=== PATIENT | male | born 1970 | race Asian ===

== ENCOUNTER 2017-11-04 07:45 | Emergency (ER) | payer OTHER ==
[~2017-11-04] VITALS: Ht 180.3 cm; Wt 110.0 kg
[~2017-11-04 07:45] MED LIST: MULTTAB50; VIT250TA PO; [UNRECOGNIZED DRUG - CODE] PO
[2017-11-04 07:47] VITALS: BP 181/108; PULSE 79; RESP 16; TEMP 98.4; O2SAT 98
[2017-11-04] MEDS ORDERED: POTA10CA PO (08:48)
[2017-11-04] MEDS ORDERED: AMLO5TAB2 PO (08:48)
[2017-11-04 08:50] VITALS: BP 132/87; PULSE 83; RESP 18; O2SAT 96
[2017-11-04] MEDS ORDERED: [UNRECOGNIZED DRUG - CODE] PO (08:51)
[2017-11-04] MEDS ORDERED: CYCL10TA PO (09:36)
[2017-11-04] MEDS ORDERED: MOBI15TA PO (09:36)
[2017-11-04] MEDS ORDERED: PRED20 PO (09:38)
--- NOTE | 2017-11-04 09:38 | PD ---
HPI Chief Complaint: Back/ Neck Pain or Injury Time Seen by Provider: 09:11 Travel History International Travel<30 days: No Contact w/Intl Traveler<30days: No Traveled to known affect area: No History of Present Illness HPI Is a 47-year-old male presents emergency department with a few days history of low back pain. 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 He has been taking some Tylenol at home with no significant relief. Denies any saddle anesthesia difficulty urinating numbness and tingling in his legs or weakness in his legs. States the pain is mild to moderate, worse when he is lying flat, context and associated signs and symptoms as above PFSH Past Medical History Hypertension: Yes Sleep Apnea: Yes Influenza Vaccination: Yes Past Surgical History Cholecystectomy: Yes Social History Alcohol Use: Yes (SOCIAL) Tobacco Use: No Substance Use: No Allergies-Medications (Allergen,Severity, Reaction): Coded Allergies: minocycline (Verified Allergy, Intermediate, 11/04/17) INCREASED HR Reported Meds & Prescriptions Reported Meds & Active Scripts Active Prednisone 20 Mg Tab 60 Mg PO DAILY 5 Days Flexeril (Cyclobenzaprine HCl) 10 Mg Tab 10 Mg PO TID Mobic (Meloxicam) 15 Mg Tab 15 Mg PO DAILY 7 Days Reported Epivir HBV (Lamivudine (HBV)) 100 Mg Tab 100 Mg PO DAILY Potassium Chloride ER (Potassium Chloride) 10 Meq Cap 10 Meq PO DAILY Amlodipine (Amlodipine Besylate) 5 Mg Tab 5 Mg PO DAILY Review of Systems Except as stated in HPI: all other systems reviewed are Neg Physical Exam Narrative GENERAL: Well-developed, well-nourished, no obvious distress SKIN: Focused skin assessment warm/dry. HEAD: Atraumatic. Normocephalic. EYES: Pupils equal and round. No scleral icterus. No injection or drainage. ENT: No nasal bleeding or discharge. Mucous membranes pink and moist. NECK: Trachea midline. No JVD. CARDIOVASCULAR: Regular rate and rhythm. No murmur appreciated. RESPIRATORY: No accessory muscle use. Clear to auscultation. Breath sounds equal bilaterally. GASTROINTESTINAL: Abdomen soft, non-tender, nondistended. Hepatic and splenic margins not palpable. MUSCULOSKELETAL: No obvious deformities. No clubbing. No cyanosis. No edema. There is no midline CT or L-spine tenderness, 5 out of 5 strength in all 4 extremities, pulse motor and sensory intact distally in all 4 extremities NEUROLOGICAL: Awake and alert. No obvious cranial nerve deficits. Motor grossly within normal limits. Normal speech. PSYCHIATRIC: Appropriate mood and affect; insight and judgment normal. Data Data Last Documented VS Vital Signs Date Time Temp Pulse Resp B/P (MAP) Pulse Ox O2 Delivery O2 Flow Rate FiO2 11/04/17 10:08 11/04/17 08:50 83 18 96 Room Air 11/04/17 07:47 98.4 Orders Orders Meloxicam (Mobic) (11/04/17 09:45) Ed Discharge Order (11/04/17 09:38) [facility] Medical Decision Making Medical Screen Exam Complete: Yes Emergency Medical Condition: Yes Differential Diagnosis Degenerative disc disease, back strain, back sprain, back fracture highly unlikely per Narrative Course Patient room to the emergency department, there is no indication for emergent imaging at this time, discussed with him symptomatic management if no better in 6-8 weeks consider outpatient MRI. He is stable for discharge and ambulated from the emergency department in no obvious distress. Diagnosis Primary Impression: Low back strain Additional Instructions: Follow-up with [facility], expect 6-8 weeks worth of wound healing, if no better in that time consider doing an outpatient MRI with your regular physician or with [facility]Other Pt SpecificInfo: Prescription(s) given Scripts Prednisone (Prednisone) 20 Mg Tab 60 MG PO DAILY for 5 Days, #15 TAB 0 Refills Prov: Roosevelt Keen MD 11/04/17 Cyclobenzaprine (Flexeril) 10 Mg Tab 10 MG PO TID for Muscle Spasm, #30 TAB 0 Refills Prov: Roosevelt Keen MD 11/04/17 Meloxicam (Mobic) 15 Mg Tab 15 MG PO DAILY for 7 Days, #7 TAB 0 Refills Prov: Roosevelt Keen MD 11/04/17 Disposition: 01 DISCHARGE HOME Condition: Stable Rooesvelt Keen MD Nov 04, 2017 09:38
[2017-11-04] MEDS ORDERED: MELOXICAM 15 MG TAB PO ONE (09:45)
== END 2017-11-04 10:08 | disposition home or self-care (01) ==
LOC: MERGE 07:45 → NEPD 07:45
DX: S39.012A Strain of muscle, fascia and tendon of lower back, initial encounter (principal); I10 Essential (primary) hypertension; X50.9XXA Other and unspecified overexertion or strenuous movements or postures, initial encounter; Y99.0 Civilian activity done for income or pay; Z88.8 Allergy status to other drugs, medicaments and biological substances; Z79.899 Other long term (current) drug therapy
CPT/HCPCS: 99283